=== PATIENT | female | born 1975 | race Caucasian/White ===

== ENCOUNTER 2017-04-21 09:41 | Emergency (ER) | payer BC, MEDICAID ==
[2017-04-21] MEDS: DIPHENHYDRAMINE 25 MG CAP PO (11:12)
== END 2017-04-21 12:00 | disposition left against medical advice (07) ==
LOC: FTE 12:00
DX: L23.9 Allergic contact dermatitis, unspecified cause (principal); J40 Bronchitis, not specified as acute or chronic; Z87.891 Personal history of nicotine dependence
CPT/HCPCS: 99282

== ENCOUNTER 2017-06-18 13:21 | Emergency (ER) | payer BC ==
[2017-06-18] MEDS: CYCLOBENZAPRINE 10 MG TAB PO (16:16)
[2017-06-18] MEDS: KETOROLAC 60 MG INJ IM (16:17)
[2017-06-18 16:19] LABS: URINE BLOOD (Dip) POC 3+ (NEGATIVE); URINE GLUCOSE (Dip) POC Negative (NEGATIVE); URINE KETONES (Dip) POC Negative (NEGATIVE); URINE LEUKOCYTE EST (Dip) POC Negative (NEGATIVE); URINE NITRITE (Dip) POC Negative (NEGATIVE); URINE TOTAL PROTEIN POC Negative (NEGATIVE)
[2017-06-18 16:19] LABS: URINE PH (Dip) POC 6.5 (5.0-8.5)
== END 2017-06-18 17:50 | disposition home or self-care (01) ==
LOC: FTE 13:21
DX: M51.36 Other intervertebral disc degeneration, lumbar region (principal); Z87.891 Personal history of nicotine dependence
CPT/HCPCS: 72100; 81003; 96372; 99284-25

== ENCOUNTER 2017-08-07 07:41 | Emergency (ER) | payer BC ==
[2017-08-07] MEDS: HYDROCODONE/APAP (10/325) TAB PO (08:33)
[2017-08-07] MEDS: ONDANSETRON (ODT) 4 MG TAB ODT (08:44)
[2017-08-07] MEDS: KETOROLAC 60 MG INJ IM (08:45)
== END 2017-08-07 11:01 | disposition home or self-care (01) ==
LOC: FTE 07:41
DX: S30.0XXA Contusion of lower back and pelvis, initial encounter (principal); W10.8XXA Fall (on) (from) other stairs and steps, initial encounter; Y92.9 Unspecified place or not applicable; Z87.891 Personal history of nicotine dependence
CPT/HCPCS: 72100; 72220; 81025; 96372; 99284-25

== ENCOUNTER 2017-08-18 18:41 | Emergency (ER) | payer BC | END 2017-08-18 19:50 | disposition home or self-care (01) | LOC: FTE 18:41 | DX: S30.0XXD Contusion of lower back and pelvis, subsequent encounter (principal); K59.00 Constipation, unspecified; K64.9 Unspecified hemorrhoids; R11.0 Nausea; F17.210 Nicotine dependence, cigarettes, uncomplicated; W10.9XXD Fall (on) (from) unspecified stairs and steps, subsequent encounter; Y92.9 Unspecified place or not applicable | CPT/HCPCS: 99284 ==

== ENCOUNTER 2018-01-12 13:07 | Emergency (ER) | payer MEDICAID, BC ==
[2018-01-12] MEDS: NEOMYC/POLYMYX/HC 7.5 ML OPH BOTH EYES (15:39)
[2018-01-12] MEDS: DEXAMETHASONE 10 MG/ML 1 ML INJ IM (15:40)
[2018-01-12 15:41] LABS: URINE BLOOD (Dip) POC 2+ (NEGATIVE); URINE GLUCOSE (Dip) POC Negative (NEGATIVE); URINE KETONES (Dip) POC Negative (NEGATIVE); URINE LEUKOCYTE EST (Dip) POC Negative (NEGATIVE); URINE NITRITE (Dip) POC Negative (NEGATIVE); URINE TOTAL PROTEIN POC Trace (NEGATIVE)
== END 2018-01-12 16:24 | disposition left against medical advice (07) ==
LOC: FTE 16:24
DX: H10.13 Acute atopic conjunctivitis, bilateral (principal)
CPT/HCPCS: 81003; 81025; 96372; 99284-25

== ENCOUNTER 2018-01-23 00:29 | Emergency (ER) | payer MEDICAID ==
[2018-01-23] MEDS: DEXAMETHASONE 10 MG/ML 1 ML INJ IM (02:48)
== END 2018-01-23 02:56 | disposition home or self-care (01) ==
LOC: FTE 00:29
DX: H01.135 Eczematous dermatitis of left lower eyelid (principal); H01.134 Eczematous dermatitis of left upper eyelid; H01.132 Eczematous dermatitis of right lower eyelid; H01.131 Eczematous dermatitis of right upper eyelid; F17.210 Nicotine dependence, cigarettes, uncomplicated
CPT/HCPCS: 96372; 99284-25

== ENCOUNTER 2018-01-30 02:17 | Emergency (ER) | payer MEDICAID ==
[2018-01-30] MEDS: DIPHENHYDRAMINE 25 MG CAP PO (02:47)
[2018-01-30] MEDS: METHYLPREDNISOLONE 125 MG INJ IM (02:48)
== END 2018-01-30 03:51 | disposition home or self-care (01) ==
LOC: FTE 02:17
DX: H01.131 Eczematous dermatitis of right upper eyelid (principal); H01.132 Eczematous dermatitis of right lower eyelid; H01.134 Eczematous dermatitis of left upper eyelid; H01.135 Eczematous dermatitis of left lower eyelid; F17.210 Nicotine dependence, cigarettes, uncomplicated
CPT/HCPCS: 96372; 99284-25

== ENCOUNTER 2018-12-06 11:21 | Emergency (ER) | payer MEDICAID ==
[2018-12-06] MEDS: CEPHALEXIN 500 MG CAP PO (11:54)
[2018-12-06] MEDS: TRIMETHOPRIM/SULFAMETHOX (DS) TAB PO (11:54)
== END 2018-12-06 12:29 | disposition home or self-care (01) ==
LOC: E/R 11:21
DX: H01.006 Unspecified blepharitis left eye, unspecified eyelid (principal); Z87.891 Personal history of nicotine dependence
CPT/HCPCS: 99283; Z7502